=== PATIENT | male | born 1950 | race Caucasian/White ===

== ENCOUNTER → 2018-03-15 13:13 | Outpatient (CLI) | payer MEDICARE, OTHER, SELFPAY ==
--- NOTE | 2018-03-15 | DI.CT.S_ITS ---
PROCEDURE: CT SINUS SCREEN WO CON INDICATIONS: Sinus headache TECHNIQUE: Noncontrast 3.0 mm axial images acquired from the frontal sinuses to the mid-sella, with coronal and sagittal reformats. For radiation dose reduction, the following was used: automated exposure control, adjustment of mA and/or kV according to patient size. COMPARISON: None. FINDINGS: Image quality: Excellent. Small mucous retention cyst versus polyp noted in the floor of the left maxillary sinus. Minimal mucosal thickening noted in the floor of the right maxillary sinus. The osteomeatal units are patent bilaterally. No air-fluid levels are identified. No bony thickening, bone remottling or ostial lysis. Nasal septum is slightly deviated to the right posteriorly. No jaelyn bullosa or paradoxical turbinates. The anterior ethmoid artery notches are protected bilaterally. Type I cribriform plate noted. No variants in the ethmoid roof anatomy. Type I left frontal recess are noted. The sphenoid sinus pneumatization pattern is sellar complete. The sphenoid intersinus septum is deviated to the left and attaches to the osseous optic canal. Type II optic canals noted. IMPRESSION: 1. Minimal mucosal thickening in the right maxillary sinus. 2. Small left maxillary sinus mucous retention cyst versus polyp. 3. Variant paranasal sinus anatomy as described above. Dictated by: Michell Don MD, PhD on 03/15/2018 at 14:20 Approved by: Michell Don MD, PhD on 03/15/2018 at 14:26
== END ==
PROVIDERS: Family Provider Family Medicine; PCP Family Medicine; Visit Provider Allergy & Immunology
DX: R51 Headache (principal)
CPT/HCPCS: 70486

== ENCOUNTER → 2021-10-28 12:06 | Outpatient (CLI) | payer MEDICARE, SELFPAY ==
--- NOTE | 2021-10-28 12:09 | DI.US.S_ITS ---
PROCEDURE: US ABD AORTA ANEURYSM SCREEN INDICATIONS: SCREENING TECHNIQUE: Real time scanning was performed of the aorta and iliac arteries, with image documentation. COMPARISON: [facility], CT, ABDOMEN/PELVIS WITH CONTRAST, 03/25/2007, 8:55. FINDINGS: Aorta: Proximal aortic diameter measures 2.3 cm. Mid-aorta measures 2.1 cm. Distal aortic diameter is 1.7 cm. Iliac arteries: Right common iliac artery measures 1.1 cm. Left common iliac artery measures 1.2 cm. IMPRESSION: Negative for aneurysm. Dictated by: Isidro Merrill M.D. on 10/28/2021 at 11:46 Approved by: Isidro Merrill M.D. on 10/28/2021 at 11:47
== END ==
PROVIDERS: Family Provider Family Medicine; PCP Family Medicine; Referring Provider Family Medicine; Visit Provider Family Medicine
DX: Z13.6 Encounter for screening for cardiovascular disorders (principal)
CPT/HCPCS: 76706

== ENCOUNTER → 2023-12-23 11:22 | Outpatient (CLI) | payer MEDICARE, SELFPAY ==
[2023-12-23 12:29] LABS: Add Manual Diff / Slide Review NO; Basophils Absolute Auto 100 /uL (0-100); Basophils Percent Auto 1.3 % (0-2); Eosinophils Absolute Auto 100 /uL (0-450); Eosinophils Percent Auto 2.2 % (2-4); Hematocrit 45.2 % (41-53); Hemoglobin 15.7 g/dL (13.5-17.5); Lymphocytes Absolute Auto 1200 /uL (1100-4500); Mean Corpuscular HGB Conc 34.6 % (30-36); Mean Corpuscular Hemoglobin 31.2 PG (26-34); Mean Corpuscular Volume 90.2 fL (80-100); Monocytes Absolute Auto 500 /uL (0-900); Monocytes Percent Auto 10.4 % (3-14); Neutrophils Absolute Auto 3100 /uL (1500-7000); Neutrophils Percent Auto 62.1 % (50-75); Platelet Count 201 X10^3/uL (150-400); Red Blood Cell Count 5.01 X10^6/uL (4.5-5.9); Red Cell Distribution Width 13.1 % (11.6-14.8); White Blood Cell Count 5.1 X10^3/uL (4.5-11.0)
[2023-12-23 12:36] LABS: Hemoglobin A1C% w Est Avg Glu 6.2 % (4.0-6.0)
[2023-12-23 12:42] LABS: Alanine Aminotransferase 34 IU/L (<50); Albumin 4.2 g/dL (3.5-5.0); Albumin Globulin Ratio 1.6 (1.0-2.8); Alkaline Phosphatase 94 U/L (38-126); Aspartate Aminotransferase 33 IU/L (17-59); BUN Creatinine Ratio 18.8 (6-22); Blood Urea Nitrogen 15 mg/dL (9-20); Carbon Dioxide 29 mmol/L (22-32); Chloride 101 mmol/L (98-107); Cholesterol 131 mg/dL (140-199); Estimated Glomerular Filt Rate > 60 mL/min (>60); Globulin 2.7 g/dL (1.7-4.1); Glucose 97 mg/dL (80-110); HDL Cholesterol 31 mg/dL (40-60); HEMOLYSIS < 15 (0-50); LDL Cholesterol Calculated 59 mg/dL (<100); Potassium 4.7 mmol/L (3.4-5.1); Sodium 136 mmol/L (137-145); Total Protein 6.9 g/dL (6.3-8.2); Triglycerides 204 mg/dL (35-150)
[2023-12-23 13:13] LABS: TSH w/ Reflex to FT4 1.13 uIU/mL (0.47-4.68)
[2023-12-23 16:14] LABS: Creatinine Urine Random 77.3 mg/dL
[2023-12-23 16:18] LABS: Microalbumin Urine Random < 0.6 mg/dL (0-1.6)
== END ==
LOC: LAB 11:23
PROVIDERS: PCP Family Medicine; Referring Provider Family Medicine; Visit Provider Family Medicine
DX: E11.8 Type 2 diabetes mellitus with unspecified complications (principal); I10 Essential (primary) hypertension; F32.9 Major depressive disorder, single episode, unspecified; E78.5 Hyperlipidemia, unspecified; G47.33 Obstructive sleep apnea (adult) (pediatric)
CPT/HCPCS: 36415; 80053; 80061; 82043; 82570; 83036; 84443; 85025

== ENCOUNTER → 2024-10-13 10:55 | Outpatient (CLI) | payer MEDICARE, SELFPAY ==
[2024-10-13 11:26] LABS: Hemoglobin A1C% w Est Avg Glu 6.6 % (4.0-6.0)
[2024-10-13 11:38] LABS: BUN Creatinine Ratio 17.2 (6-22); Blood Urea Nitrogen 16 mg/dL (9-20); Calcium 9.5 mg/dL (8.4-10.2); Carbon Dioxide 31 mmol/L (22-32); Chloride 102 mmol/L (98-107); Cholesterol 147 mg/dL (140-199); Estimated Glomerular Filt Rate > 60 mL/min (>60); Glucose 123 mg/dL (80-110); HDL Cholesterol 34 mg/dL (40-60); HEMOLYSIS < 15 (0-50); LDL Cholesterol Calculated 93 mg/dL (<100); Potassium 4.5 mmol/L (3.4-5.1); Sodium 137 mmol/L (137-145); Triglycerides 102 mg/dL (35-150)
== END ==
PROVIDERS: PCP Family Medicine; Referring Provider Family Medicine; Visit Provider Family Medicine
DX: E11.9 Type 2 diabetes mellitus without complications (principal)
CPT/HCPCS: 36415; 80048; 80061; 83036

== ENCOUNTER → 2025-04-05 14:17 | Outpatient (CLI) | payer MEDICARE, SELFPAY ==
[2025-04-05 14:58] LABS: Hemoglobin A1C% w Est Avg Glu 6.7 % (4.0-6.0)
[2025-04-05 15:16] LABS: Blood Urea Nitrogen 15 mg/dL (9-20); Calcium 9.4 mg/dL (8.4-10.2); Carbon Dioxide 26 mmol/L (22-32); Chloride 102 mmol/L (98-107); Estimated Glomerular Filt Rate > 60 mL/min (>60); Glucose 108 mg/dL (70-99); HEMOLYSIS < 15 (0-50); Potassium 4.4 mmol/L (3.4-5.1); Sodium 137 mmol/L (137-145)
== END ==
PROVIDERS: PCP Family Medicine; Referring Provider Family Medicine; Visit Provider Family Medicine
DX: E11.9 Type 2 diabetes mellitus without complications (principal)
CPT/HCPCS: 36415; 80048; 83036

== ENCOUNTER 2025-06-13 08:04 | Day surgery (SDC) | payer MEDICARE, SELFPAY ==
--- NOTE | 2025-06-12 10:26 | EKG_ITS ---
[address] [address] Test Date: 2025-06-13 Pat Name: Vivek Bautista Department: [facility] Room: Gender: Male Stogy Maker: JANICE : 1950 Requested By: Order Number: [id number] Reading MD: Saji Tristan Measurements Intervals [place] Rate: 74 P: 70 MI: 150 QRS: 20 QRSD: 84 T: 27 QT: 396 QTc: 439 Interpretive Statements Normal sinus rhythm Electronically Signed On 06-13-2025 17:29:05 PDT by Saji Tristan
--- NOTE | 2025-06-13 06:41 | PM.HP.IH.1 ---
History of Present Illness History of Present Illness Date Patient Seen: 06/13/25 Time Patient Seen: 06:41 Chief complaint: Colonoscopy Narrative: 75yo M presents for screening colonoscopy. Had prior 10 years ago at . [facility] Medical History (Updated 06/13/25 @ 06:43 by Jewel Erickson MD) Personal history of poliomyelitis Hypogonadism, male Asthma Hyperlipidemia Allergic rhinitis Anxiety Obstructive sleep apnea of adult Snoring Primary insomnia Family History (Updated 09/20/19 @ 11:09 by Rosette Jordan) Father Headache Social History alcohol intake: never substance use type: does not use Meds Home Medications and Allergies Home Medications ?Medication ?Instructions ?Recorded ?Confirmed ?Type aspirin 325 mg tablet 325 mg PO BID 10/01/23 04/10/25 History sstppgc-ztwdvqvmwodsr-cdenahgb 250 1 tab PO DAILY PRN migraine 10/01/23 04/10/25 History mg-250 mg-65 mg tablet (Excedrin headache Migraine) cholecalciferol (vitamin D3) 50 50 mcg PO DAILY 10/01/23 04/10/25 History mcg (2,000 unit) capsule diphenhydramine HCl 25 mg tablet 25 mg PO BEDTIME PRN allergies 10/01/23 04/10/25 History (Benadryl Allergy) ginkgo biloba 1 cap PO DAILY 10/01/23 04/10/25 History verapamil 180 mg 24 hr 180 mg PO DAILY 10/01/23 04/10/25 History capsule,extended release vitamin B complex 1 tab PO DAILY 10/01/23 04/10/25 History vitamins A,C,T-iqqi-lqmobv [ICaps 1 cap PO DAILY 10/01/23 04/10/25 History AREDS] hydrocortisone 2.5 % topical cream 1 applic topical BID PRN skin 01/25/24 04/10/25 Rx irritation #30 grams fluticasone 500 mcg-salmeterol 50 1 inh inhalation BID #120 ea 03/09/24 04/10/25 Rx mcg/dose blistr powdr for inhalation clotrimazole 1 % topical cream 1 applic topical BID PRN rash #30 05/23/24 04/10/25 Rx grams clonazepam 0.5 mg tablet 0.25 mg (1/2 x 0.5 mg) PO ONCE PRN 06/14/24 04/10/25 Rx anxity #10 tabs erenumab-aooe 70 mg/mL See Rx Instructions SUBCUT MONTHLY 12/28/24 04/10/25 Rx subcutaneous auto-injector #6 mL (Aimovig Autoinjector) gabapentin 400 mg capsule 400 mg PO BID #180 caps 01/31/25 04/10/25 Rx atorvastatin 20 mg tablet 20 mg PO DAILY #90 tabs 04/17/25 Rx lisinopril 10 mg tablet 10 mg PO DAILY #90 tabs 04/26/25 Rx sodium,potassium,mag sulfates 17.5 See Rx Instructions PO .COMPLEX 05/12/25 Rx gram-3.13 gram-1.6 gram oral soln #354 mL (Suprep Bowel Prep Kit) tirzepatide 5 mg/0.5 mL 5 mg (0.5 mL) SUBCUT QWEEK 4 weeks 05/29/25 Rx subcutaneous pen injector #6 mL (Mounjaro) Allergies Allergy/AdvReac Type Severity Reaction Status Date / Time pollen extracts Allergy Mild Verified 04/10/25 11:54 Penicillins Allergy Unknown SWELLING Verified 04/10/25 11:54 OF TONGUE Exam Narrative Exam Narrative: Const General: comfortable Orientation: alert and oriented x3 Resp Effort & Inspection: normal respiratory effort and able to speak in complete sentences Cardio Rate: regular rate GI Palpation: soft (NT) Extrem General: no pedal edema and no calf tenderness Assessment & Plan Assessment and plan (1) Encounter for screening colonoscopy: Status: Acute Plan Plan screening colonoscopy, possible biopsy. The risks, benefits and options regarding the procedure were explained to the patient in detail. Risk discussion included but not limited to: bleeding, perforation, missed lesion, unable to reach cecum. The patient was encouraged to ask questions and they were answered to their satisfaction. The patient understands and is agreeable to proceed. Time-Based Coding :: [TOTAL MINUTES] spent with patient and on the chart (including review of chart, obtaining history, exam, reviewing outside data, placing orders, documenting exam and treatment plan, and counseling patient) on [DATE]. [employer] Consultant Document charge(s): Yes Charge Codes Inpatient/observation care including admit and discharge same day: [id number]
[2025-06-13 08:52] VITALS: BMI 25.0
[2025-06-13 09:04] VITALS: BP 142/86; PULSE 71; RESP 20; TEMP 36.1; O2SAT 97
[2025-06-13] MEDS: LACTATED RINGERS 1,000 ML 42 ML IV (09:18)
--- NOTE | 2025-06-13 10:03 | P.OP.COLON_ITS ---
Operative Date/Time/Diagnoses Date of procedure: 06/13/25 Time of procedure: 11:09 Pre-op diagnosis: Screening colonoscopy Post-op diagnosis: same Procedure & Clinicians Study performed: Colonoscopy, screening Same procedure(s) as scheduled: Yes Indications: 75yo M due for screening colonoscopy Surgeon: Jewel Erickson Anesthesia Type: MAC +/- Procedure Notes SCOAP/Timeout: Performed Procedure in detail: Colonoscopy Patient placed in left lateral recumbent position. Time out was performed. Procedural sedation was administered by anesthesia. Examination began with a thorough inspection of the perianal area. There was no evidence of fissures, fistulae, external hemorrhoids or cutaneous malignancy. The colonoscope was then placed into the rectum and the lumen was insufflated with carbon dioxide. The scope was carefully advanced forward. Ultimately the cecum was intubated and confirmed by identification of the ileocecal valve, the appendiceal orifice and the confluence of the taenia. The scope was then slowly withdrawn examining the colon thoroughly in all directions. In the rectum, retroflexion of the scope was performed for inspection of the distal rectum and anal canal. ?Significant colonoscopy findings: ?1. Quality of the preparation-good, Edwards 2-3, improved with irrigation/suction ?2. Hyperplastic polyp, 2mm at 30cm in sigmoid, not removed 3. Sigmoid diverticulosis 4. No mass, stricture or adenomatous appearing polyps Scope withdrawal time: 8 minutes Findings: divertiulosis Specimen(s): none sent Complications: none Impression: Sigmoid diverticulosis No significant polyps, mass or stricture Post-procedure Recommendations: Colonoscopy in 10 years Follow up: as needed Disposition: PACU
[2025-06-13 11:08] VITALS: BP 111/67; PULSE 73; RESP 16; TEMP 36.4; O2SAT 95
[2025-06-13 11:10] VITALS: BP 109/69; PULSE 67; RESP 13; O2SAT 95
[2025-06-13 11:15] VITALS: BP 121/74; PULSE 67; RESP 13; O2SAT 96
[2025-06-13 11:20] VITALS: BP 130/79; PULSE 67; RESP 14; O2SAT 97
[2025-06-13 11:26] VITALS: BP 121/77; PULSE 72; RESP 18; O2SAT 96
== END 2025-06-13 11:36 | disposition home or self-care (01) ==
PROVIDERS: PCP Family Medicine; Referring Provider Family Medicine; Visit Provider Surgery
PROC: 0DJD8ZZ Inspection of Lower Intestinal Tract, Via Natural or Artificial Opening Endoscopic (ICD-10-PCS; CPT 45378; principal; 2025-06-13 09:15)
DX: Z12.11 Encounter for screening for malignant neoplasm of colon (principal); K63.5 Polyp of colon; K57.30 Diverticulosis of large intestine without perforation or abscess without bleeding
CPT/HCPCS: G0121; 82962; J2704